=== PATIENT | female | born 1995 | race Caucasian/White ===

== ENCOUNTER 2017-01-10 15:36 | Emergency (ER) | payer OTHER ==
[~2017-01-10] VITALS: Ht 160 cm; Wt 61.2 kg
[2017-01-10 15:44] VITALS: BP 116/82
--- NOTE | 2017-01-10 15:56 | ED GI/GU/ABDOMINAL COMPLAINT ---
History of Present Illness General Chief Complaint: Female Urogenital Problems Stated Complaint: ?CONDOM STUCK "IN THERE" Source: patient Exam Limitations: no limitations Vital Signs & Intake/Output Vital Signs & Intake/Output Vital Signs Date Time Temp Pulse Resp B/P Pulse O2 O2 Flow FiO2 Ox Delivery Rate 01/10 1544 97.7 81 18 116/82 97 Room Air Allergies Coded Allergies: MDX - No Known Drug Allergies - Nkd (NO KNOWN DRUG ALLERGIES - NKDA) (05/02/13) Triage Note: RECEIVED 21 YO FEMALE C/O THERE IS A CONDOM LODGED IN NVAGINA X 14 HOURS Triage Nurses Notes Reviewed? yes ? n Is pt currently ? No HPI: Patient is a 21-year-old female presents complaining of a condom stuck in her vagina. Patient reports that she was having sexual intercourse approximately 14 hours ago and believes that a condom became lodged in her vagina. Patient reports that her in her sexual partner checked the bedding and throughout the area that they have intercourse were not able to find the condom. Patient reports mild vaginal irritation. Denies fevers, chills, dysuria, vaginal discharge. Past History Travel History Traveled to [place] past 21 day No Medical History Any Pertinent Medical History? see below for history Neurological: NONE EENT: NONE Cardiovascular: NONE Respiratory: NONE Gastrointestinal: NONE Hepatic: NONE Renal: NONE Musculoskeletal: NONE Psychiatric: bipolar disease Endocrine: NONE Blood Disorders: NONE Cancer(s): NONE Surgical History Surgical History: non-contributory Psychosocial History What is your primary language [place] Tobacco Use: Quit <30 days ago Family History Hx Contributory? No Review of Systems Review of Systems Constitutional: Denies: chills, fever. GI: Denies: abdominal pain. Genitourinary: Reports: see HPI. Musculoskeletal: Reports: no symptoms. Skin: Reports: no symptoms. Neurological/Psychological: Reports: no symptoms. Hematologic/Endocrine: Reports: no symptoms. Immunologic/Allergic: Reports: no symptoms. Physical Exam Physical Exam General Appearance: well developed/nourished, alert, awake Head: atraumatic Eyes: Bilateral: normal appearance. Ears, Nose, Throat, Mouth: hearing grossly normal Neck: full range of motion Respiratory: no respiratory distress Gastrointestinal: soft, non-tender Pelvic: with Sonia Obrien MST present throughout exam: Condom present adjacent to the cervix. No visible lesions or vaginal discharge. Back: normal inspection, normal range of motion Extremities: normal range of motion Neurologic/Psych: awake, alert, oriented x 3, normal gait, normal mood/affect Skin: intact, normal color, warm/dry Core Measures ACS in differential dx? No Severe Sepsis Present: No Septic Shock Present: No Progress Differential Diagnosis: vaginal foreign body, PID, toxic shock syndrome Plan of Care: Patient afebrile, nontoxic appearing, no cervical motion tenderness on exam. Vaginal foreign body removed. Patient appears stable for discharge. Signs and symptoms to monitor for were discussed with the patient. Initial ED EKG: none Departure Departure Time of Disposition: 1609 Disposition: HOME OR SELF CARE Condition: Stable Clinical Impression Primary Impression: Foreign body in vagina Qualifiers: Encounter type: initial encounter Qualified Code: T19.2XXA - Foreign body in vulva and vagina, initial encounter Referrals: PATIENT HAS NO PRIMARY CARE DR (PCP/Family) Additional Instructions: Return to the emergency department if fevers, vaginal discharge, or increasing vaginal pain, or you develop abdominal pain. Departure Forms: Customer Survey General Discharge Information
== END 2017-01-10 16:17 ==
LOC: ERH 15:36
DX: T19.2XXA Foreign body in vulva and vagina, initial encounter (principal)